=== PATIENT | female | born 1960 | race American Indian/Alaskan Native ===

== ENCOUNTER 2018-05-11 09:51 | Day surgery (SDC) | payer MEDICAID, MEDICARE | END 2018-05-11 09:52 | disposition home or self-care (01) | LOC: CATHLABREC 09:51 → EDSTATUS 10:30 | PROVIDERS: ATTEND Otolaryngology | DX: E06.9 Thyroiditis, unspecified (principal) ==

== ENCOUNTER 2018-05-19 11:00 | Outpatient (CLI) | payer MEDICARE | END 2018-05-19 11:01 | disposition home or self-care (01) | LOC: SLR 11:00 | PROVIDERS: ATTEND Otolaryngology | DX: G47.33 Obstructive sleep apnea (adult) (pediatric) (principal) | CPT/HCPCS: G0399 ==

== ENCOUNTER 2018-05-31 09:25 | Day surgery (SDC) | payer MEDICARE ==
[2018-05-31 10:23] VITALS: BP 135/63
--- NOTE | 2018-05-31 11:45 | Short Stay Summary ---
Short Stay Documentation Date of service: 05/31/18 - History Principal diagnosis: thyroid nodule H&P: obtained from office - Allergies and Medications Current Medications: Allergies lisinopril Allergy (Verified 09/25/14 21:52) Angioedema Home Medications Medication Instructions Recorded Confirmed Last Taken Type ALBUTEROL Inhaler [ProAir HFA 2 puff INHALATION Q4HR PRN 09/02/14 05/31/1805/31 History Inhaler] 1 puff ALBUTEROL NEB's [Proventil 0.083% 2.5 mg INHALATION BID PRN 09/02/14 05/31/18 History NEBS] 2.5 mg Fluticasone [Flonase] 1 spray INNOSTRIL DAILY 09/02/14 05/31/18 05/30/18 History 50 mcg Hydrochlorothiazide 25 mg PO DAILY 09/02/14 05/31/18 05/30/18 History 25 mg cloNIDine [Catapres] 0.2 mg PO BID 09/02/14 05/31/18 05/30/18 History 0.2 mg Albuterol Sulfate [Proventil HFA] 1 - 2 puff IH Q4H PRN #1 hfa.aer.ad 09/26/14 05/31/18 05/31/18 Rx 6.7 mg Potassium Chloride [K-Dur] 10 meq PO QDAY #20 tablet 09/26/14 05/31/18 05/30/18 Rx 10 mq Budesoni/Formoterol 80-4.5(Nf) 2 puff IH BID 01/22/15 01/22/15 05/31/18 History [Symbicort 80-4.5 (Nf)] 10.2 mg - Physical exam General appearance: no acute distress HEENT: Other (prominent multinodular thyroid gland, more so on the left side) - Brief post op/procedure progress note Date of procedure: 05/31/18 Pre-op diagnosis: thyroid nodule Post-op diagnosis: same Procedure: US thyroid biopsy Anesthesia: local Findings: multiple nodules, dominant nodule on left side of isthmus/left lobe biopsied Surgeon: EMILIANO CALIXTO Estimated blood loss: none Pathology: list (FNA x 1, rotex biopsy x 1) Specimen disposition: to lab Condition: stable - Hospital course Hospital course: uneventful - Disposition Condition at discharge: Good Disposition: DC-01 TO HOME OR SELFCARE Short Stay Discharge Plan Follow up with: BOBBY FLORES MD [Primary Care Provider] - 7 Days
--- NOTE | 2018-05-31 14:25 | Ultrasound Report ---
ULTRASOUND BIOPSY THYROID History: Thyroid swelling, thyroid nodule. Description of procedure: Informed consent was obtained. Sterile technique was utilized. 1% lidocaine for skin anesthesia. Using ultrasound guidance, fine needle aspiration and Rotex biopsy was performed on a 4.5 x 2.2 cm solid nodule in the left side of the isthmus/left thyroid lobe. The samples were deemed adequate by the pathologist on site. No complications. Impression: Successful ultrasound-guided biopsy of the dominant thyroid nodule in the left side of the thyroid isthmus/left thyroid lobe.
== END 2018-05-31 12:05 | disposition home or self-care (01) ==
LOC: CATHLABREC 09:25
PROVIDERS: ATTEND Otolaryngology
DX: E06.9 Thyroiditis, unspecified (principal); Z88.8 Allergy status to other drugs, medicaments and biological substances
CPT/HCPCS: 60100; 76942; 88112; 88172; 88173; 88305

== ENCOUNTER 2018-06-02 11:00 | Outpatient (CLI) | payer MEDICARE | END 2018-06-02 11:01 | disposition home or self-care (01) | LOC: SLR 11:00 | PROVIDERS: ATTEND Otolaryngology | DX: G47.33 Obstructive sleep apnea (adult) (pediatric) (principal); I10 Essential (primary) hypertension; J44.9 Chronic obstructive pulmonary disease, unspecified; Z88.8 Allergy status to other drugs, medicaments and biological substances; Z87.891 Personal history of nicotine dependence | CPT/HCPCS: 95811 ==

== ENCOUNTER 2020-12-21 12:38 | Emergency (ER) | payer MEDICAID, MEDICARE ==
--- NOTE | 2020-12-21 12:49 | Emergency Department Report ---
ED CPR HPI - General Chief Complaint: Cardiac Arrest/CPR Stated Complaint: CARDIAC ARREST Time Seen by Provider: 12/21/20 12:47 Source: EMS Mode of arrival: Stretcher Limitations: Other - History of Present Illness Initial Comments: Patient is a 60-year-old F [place] female with past medical history of stage IV colon cancer who also recently was diagnosed with being bacteremic is presenting in cardiac arrest. Patient is in hospice care however no DNR was found and the family wanted all heroic measures performed. Patient was with family. She seem ed to be relatively normal this morning however over the past several hours prior to her arrival her breathing began to decline. Family was not taught how to suction the patient. She was given some boost through her NG tube earlier in the day. Patient noted to have decreased respirations and 911 was called. She was intubated on site and was in asystole. On route the patient was given 5 rounds of epinephrine bicarb. No shocks were advised. Treatments Prior to Arrival: intubation, chest compressions, epinephrine mgs # (5), sodium bicarbonate - Related Data Home Medications Medication Instructions Recorded Confirmed Last Taken ALBUTEROL NEB's [Proventil 0.083% 2.5 mg INHALATION BID PRN 09/02/14 05/31/18 05/31/18 NEBS] 2.5 mg Albuterol Mdi (or & Nicu Only) 2 puff INHALATION Q4HR PRN 09/02/14 05/31/18 05/31/18 [ProAir HFA Inhaler] 1 puff Fluticasone [Flonase] 1 spray INNOSTRIL DAILY 09/02/14 05/31/18 05/30/18 50 mcg cloNIDine [Catapres] 0.2 mg PO BID 09/02/14 05/31/18 05/30/18 0.2 mg hydroCHLOROthiazide 25 mg PO DAILY 09/02/14 05/31/18 05/30/18 [Hydrochlorothiazide] 25 mg Budesoni/Formoterol 80-4.5(Nf) 2 puff IH BID 01/22/15 01/22/15 05/31/18 [Symbicort 80-4.5 (Nf)] 10.2 mg Previous Rx's Medication Instructions Recorded Last Taken Type Albuterol Sulfate [Proventil HFA] 1 - 2 puff IH Q4H PRN #1 hfa.aer.ad 09/26/14 05/31/18 Rx 6.7 mg Potassium Chloride [K-Dur] 10 meq PO QDAY #20 tablet 09/26/14 05/30/18 Rx 10 mq ALBUTEROL Inhaler(NF) [VENTOLIN 1 puff IH Q4HR PRN #1 inha 11/11/18 Unknown Rx Inhaler(NF)] predniSONE [Prednisone] 50 mg PO DAILY #5 tablet 11/11/18 Unknown Rx Allergies Allergy/AdvReac Type Severity Reaction Status Date / Time lisinopril Allergy Angioedema Verified 09/25/14 21:52 ED Review of Systems ROS: Stated complaint: CARDIAC ARREST Other details as noted in HPI Comment: All other systems reviewed and negative ED Past Medical Hx - Past Medical History Hx Hypertension: Yes Hx Congestive Heart Failure: Yes Hx Diabetes: Yes Hx Asthma: Yes Hx COPD: Yes - Surgical History Additional Surgical History: Rt hip REPLACEMENT, TUBAL LIGATION - Social History Smoking Status: Never Smoker Substance Use Type: None - Medications Home Medications: Home Medications Medication Instructions Recorded Confirmed Last Taken Type ALBUTEROL NEB's [Proventil 0.083% 2.5 mg INHALATION BID PRN 09/02/14 05/31/18 05/31/18 History NEBS] 2.5 mg Albuterol Mdi (or & Nicu Only) 2 puff INHALATION Q4HR PRN 09/02/14 05/31/18 05/31/18 History [ProAir HFA Inhaler] 1 puff Fluticasone [Flonase] 1 spray INNOSTRIL DAILY 09/02/14 05/31/18 05/30/18 History 50 mcg cloNIDine [Catapres] 0.2 mg PO BID 09/02/14 05/31/18 05/30/18 History 0.2 mg hydroCHLOROthiazide 25 mg PO DAILY 09/02/14 05/31/18 05/30/18 History [Hydrochlorothiazide] 25 mg Albuterol Sulfate [Proventil HFA] 1 - 2 puff IH Q4H PRN #1 hfa.aer.ad 09/26/14 05/31/18 05/31/18 Rx 6.7 mg Potassium Chloride [K-Dur] 10 meq PO QDAY #20 tablet 09/26/14 05/31/18 05/30/18 Rx 10 mq Budesoni/Formoterol 80-4.5(Nf) 2 puff IH BID 01/22/15 01/22/15 05/31/18 History [Symbicort 80-4.5 (Nf)] 10.2 mg ALBUTEROL Inhaler(NF) [VENTOLIN 1 puff IH Q4HR PRN #1 inha 11/11/18 Unknown Rx Inhaler(NF)] predniSONE [Prednisone] 50 mg PO DAILY #5 tablet 11/11/18 Unknown Rx ED Physical Exam - General Limitations: Other General appearance: obtunded - Head Head exam: Present: atraumatic, normocephalic - Eye Eye exam: Present: other (Pupils are fixed and dilated) - ENT ENT exam: Present: normal orophraynx, mucous membranes moist - Neck Neck exam: Present: normal inspection - Respiratory Respiratory exam: Present: other (No spontaneous respirations. Coarse breath sounds with bagging). Absent: normal lung sounds bilaterally - Cardiovascular Cardiovascular Exam: Present: other (No spontaneous heart tones) - GI/Abdominal GI/Abdominal exam: Present: soft, distended, normal bowel sounds - Extremities Exam Extremities exam: Present: normal inspection - Skin Skin exam: Present: warm, dry, intact, normal color. Absent: rash ED Medical Decision Making - Medical Decision Making Patient had at least a 20minute timeframe of being in asystole. Patient placed on our leads and continued to be in asystole and she was pronounced at 1235. Myself and charge nurse Emilia spoke with her family. Critical care attestation.: If time is entered above; I have spent that time in minutes in the direct care of this critically ill patient, excluding procedure time. ED Disposition Clinical Impression: Cardiopulmonary arrest Disposition: DC-20 Is pt being admited?: No Does the pt Need Aspirin: No Condition: Stable Time of Disposition: 13:16
== END 2020-12-21 15:31 ==
LOC: ED 12:38
DX: I46.9 Cardiac arrest, cause unspecified (principal); I11.0 Hypertensive heart disease with heart failure; I50.9 Heart failure, unspecified; E11.9 Type 2 diabetes mellitus without complications; J44.9 Chronic obstructive pulmonary disease, unspecified; Z98.51 Tubal ligation status; Z98.890 Other specified postprocedural states; Z79.899 Other long term (current) drug therapy; Z88.8 Allergy status to other drugs, medicaments and biological substances